=== PATIENT | female | born 1985 | race Native Hawaiian/Other Pacific Islander ===

== ENCOUNTER 2019-05-17 14:43 | Outpatient (CLI) | payer BC | END 2019-05-17 19:06 | disposition home or self-care (01) | LOC: RAD 14:43 | DX: M25.531 Pain in right wrist (principal); M25.521 Pain in right elbow ==

== ENCOUNTER 2019-11-17 14:36 | Outpatient (CLI) | payer BC | END 2019-11-17 19:47 | disposition home or self-care (01) | LOC: RAD 14:36 | DX: M25.522 Pain in left elbow (principal) ==